=== PATIENT | male | born 1990 ===

== ENCOUNTER 2017-11-22 16:31 | Emergency (ER) | payer SELFPAY ==
[2017-11-22 16:41] VITALS: RESP 18
[2017-11-22] MEDS ORDERED: Lactated Ringer's 1,000 ML IV STA (16:43)
[2017-11-22] MEDS ORDERED: Morphine 4 MG/ML VIAL ONE (16:51)
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
[2017-11-22] MEDS ORDERED: Silver Sulfadiazine 1% Cream (20 gm) TOP STA (17:16)
[2017-11-22] MEDS ORDERED: Bacitracin 500 Units/gm Oint Foilpak UD TOP ONE (17:16)
[2017-11-22] MEDS ORDERED: Bacitracin 500 Units/gm Oint Foilpak UD ONE (17:59)
[2017-11-22] MEDS ORDERED: Silver Sulfadiazine 1% Cream (20 gm) ONE (18:00)
[2017-11-22 18:34] VITALS: BP 138/90; PULSE 90; TEMP 98.4
[2017-11-26 12:20] VITALS: O2SAT 100
== END 2017-11-22 18:35 | disposition home or self-care (01) ==
LOC: C.ER 16:31
DX: T21.21XA Burn of second degree of chest wall, initial encounter (principal); T21.22XA Burn of second degree of abdominal wall, initial encounter; T20.10XA Burn of first degree of head, face, and neck, unspecified site, initial encounter; X58.XXXA Exposure to other specified factors, initial encounter
CPT/HCPCS: 96361; 96374; 96376; 99285; J2270; J7120